=== PATIENT | female | born 1940 | race Caucasian/White ===

== ENCOUNTER → 2018-11-11 | Outpatient (CLI) | payer OTHER ==
[~2018-11-11] MED LIST: AMOCLA875 PO; EYE; HTN MED
== END | disposition home or self-care (01) ==
LOC: LAB 08:06 → LAB SHORT 08:06 → PLD 08:06
DX: B35.1 Tinea unguium (principal)
CPT/HCPCS: 88304; 88312